=== PATIENT | female | born 1970 | race Caucasian/White ===

== ENCOUNTER 2019-08-10 14:17 | Emergency (ER) | payer OTHER ==
[~2019-08-10] VITALS: Ht 167.6 cm; Wt 99.8 kg
[2019-08-10] MEDS ORDERED: [UNRECOGNIZED DRUG - OTHER] (14:34)
== END 2019-08-10 20:32 | disposition home or self-care (01) ==
LOC: ER 14:17
DX: R10.32 Left lower quadrant pain (principal)

== ENCOUNTER 2019-10-23 11:00 | Day surgery (SDC) | payer OTHER ==
[~2019-10-23 11:00] MED LIST: [UNRECOGNIZED DRUG - OTHER]
== END 2019-10-23 15:40 | disposition home or self-care (01) ==
LOC: AMB-ENDOS 11:00 → ADM 12:30 → AMB-ENDOS 15:40
PROVIDERS: ATTEND Surgery
DX: K62.89 Other specified diseases of anus and rectum (principal); K57.30 Diverticulosis of large intestine without perforation or abscess without bleeding

== ENCOUNTER → 2020-01-29 | Emergency (ER) | payer OTHER ==
[~2020-01-29] VITALS: Ht 162.6 cm; Wt 90.7 kg
[~2020-01-29] MED LIST changes: +DIPHENHYDRAMINE25 M1 PO; +MUCINEX FAST-M1 EAC6 PO; +PREDNISOLO10 MG/5 ML PO
== END | disposition home or self-care (01) ==
LOC: ER 10:55
DX: J45.901 Unspecified asthma with (acute) exacerbation (principal); J06.9 Acute upper respiratory infection, unspecified

== ENCOUNTER 2020-03-10 14:54 | Outpatient (CLI) | payer OTHER | END 2020-03-10 15:18 | disposition home or self-care (01) | LOC: MAMO-SONO 14:54 | PROVIDERS: ATTEND Obstetrics & Gynecology | DX: N60.01 Solitary cyst of right breast (principal) ==

== ENCOUNTER → 2020-12-04 | Emergency (ER) | payer OTHER ==
[~2020-12-04] VITALS: Ht 170.2 cm; Wt 90.7 kg
[~2020-12-04] MED LIST changes: +CELEBREX200MG PO; +EFFEXOR XR150 MG PO; +GLUMETZA500 MG PO; +MS CONTIN200 MG; +SOMA250 MG
== END | disposition left against medical advice (07) ==
LOC: ER 10:59
DX: S80.11XA Contusion of right lower leg, initial encounter (principal); X58.XXXA Exposure to other specified factors, initial encounter; Y93.89 Activity, other specified; Y92.480 Sidewalk as the place of occurrence of the external cause

== ENCOUNTER 2021-05-27 09:35 | Outpatient (CLI) | payer OTHER | END 2021-05-27 10:00 | disposition home or self-care (01) | LOC: MAMO-SONO 09:35 | DX: N63.21 Unspecified lump in the left breast, upper outer quadrant (principal); N63.12 Unspecified lump in the right breast, upper inner quadrant ==

== ENCOUNTER 2021-10-20 08:28 | Outpatient (CLI) | payer OTHER | END 2021-10-20 08:29 | disposition home or self-care (01) | LOC: EKG 08:28 | DX: J44.9 Chronic obstructive pulmonary disease, unspecified (principal) ==

== ENCOUNTER 2022-11-01 13:35 | Outpatient (CLI) | payer OTHER | END 2022-11-01 13:43 | disposition home or self-care (01) | LOC: SONOGRAMA 13:35 | PROVIDERS: ATTEND Obstetrics & Gynecology Maternal & Fetal Medicine | DX: N60.19 Diffuse cystic mastopathy of unspecified breast (principal); N63.0 Unspecified lump in unspecified breast; N60.11 Diffuse cystic mastopathy of right breast ==

== ENCOUNTER 2023-07-12 03:07 | Emergency (ER) | payer OTHER ==
[~2023-07-12] VITALS: Ht 167.6 cm; Wt 90.7 kg
[2023-07-12] MEDS ORDERED: cloNIDine HCL 0.2 MG TABLET PO STA (05:00)
[2023-07-12] MEDS ORDERED: KETOROLAC TROMETHAMINE 30 MG VIAL IV STA (05:00)
[2023-07-12 05:24] LABS: HEMATOCRIT 40.4 % (36.0-45.00); MEAN CELL VOLUME 97.3 fL (80.00-100.00); MEAN CORPUSCULAR HEMOGLOBIN 33.6 pg (27.00-32.0); MEAN CORPUSCULAR HGB CONC 34.5 g/dl (32.0-36.0); PLATELET COUNT 254 K/uL (150-450); RED BLOOD COUNT 4.15 M/uL (4.00-6.00); RED CELL DISTRIBUTION WIDTH 12.9 % (11.5-14.5)
[2023-07-12 06:30] LABS: ALBUMIN 4.2 gm/dL (3.4-5.0); BILIRUBIN TOTAL 0.55 mg/dL (0.3-1.2); CALCIUM 9.7 mg/dL (8.5-10.1); CREATININE SERUM 0.65 mg/dL (0.55-1.02); GFR 96.09; GLOBULINA 4.3 G/DL (2.4-3.5); POTASSIUM 4.36 mEq/L (3.5-5.1); TOTAL PROTEIN 8.5 gm/dL (6.4-8.2)
== END 2023-07-12 07:03 | disposition home or self-care (01) ==
LOC: ER 03:08
DX: I10 Essential (primary) hypertension (principal); Z91.018 Allergy to other foods

== ENCOUNTER 2024-06-18 10:59 | Emergency (ER) | payer OTHER ==
[~2024-06-18] VITALS: Ht 170.2 cm; Wt 86.2 kg
[2024-06-18] MEDS ORDERED: NITROGLYCERIN0.4 MG SL (11:32)
[2024-06-18] MEDS ORDERED: 0.9 % SODIUM CHLORIDE 1,000 ML IV STA (11:45)
== END 2024-06-18 15:31 | disposition home or self-care (01) ==
LOC: ER 11:02
DX: I95.89 Other hypotension (principal); I10 Essential (primary) hypertension; M79.7 Fibromyalgia; F32.89 Other specified depressive episodes; Z91.018 Allergy to other foods
CPT/HCPCS: 96365; 96366; 99282; J7030